=== PATIENT | male | born 1960 | race Caucasian/White ===

== ENCOUNTER → 2017-10-19 | Outpatient (CLI) | payer MEDICARE, BC ==
[~2017-10-19] MED LIST: DULO1CAP PO; FENT1PAT; FENT50T T-DERMAL; GLUC500T4 PO; LYRI150C PO; MELA5 PO; OXYC1TAB36 PO; PREN29TA PO; TEST1INJ3 IM; TIZA4TAB PO; VITA250T3 PO
[2017-10-19 08:46] LABS: AUTOMATED NEUTROPHIL # 5.1 TH/MM3 (1.8-7.7); BASOPHIL % 0.6 % (0.0-2.0); EOSINOPHIL # 0.2 TH/MM3 (0-0.4); EOSINOPHIL % 3.4 % (0.0-4.0); HEMATOCRIT 42.6 % (39.0-51.0); HEMOGLOBIN 14.4 GM/DL (13.0-17.0); LYMPH % 15.1 % (9.0-44.0); LYMPHOCYTE # 1.1 TH/MM3 (1.0-4.8); MEAN CELL VOLUME 88.1 FL (80.0-100.0); MEAN CORPUSCULAR HEMOGLOBIN 29.7 PG (27.0-34.0); MEAN CORPUSCULAR HGB CONC 33.7 % (32.0-36.0); MEAN PLATELET VOLUME 7.1 FL (7.0-11.0); MONO % 7.7 % (0.0-8.0); MONOCYTE # 0.5 TH/MM3 (0-0.9); NEUT % 73.2 % (16.0-70.0); PLATELET COUNT 258 TH/MM3 (150-450); RED BLOOD COUNT 4.84 MIL/MM3 (4.50-5.90); RED CELL DISTRIBUTION WIDTH 14.5 % (11.6-17.2)
[2017-10-19 09:07] LABS: BICARBONATE 29.7 MEQ/L (21.0-32.0); CALCIUM 9.1 MG/DL (8.5-10.1); CREATININE 0.6 MG/DL (0.60-1.30)
[2017-10-19 10:04] LABS: BILIRUBIN, URINE NEG (NEG); BLOOD, URINE NEG (NEG); GLUCOSE,URINE NEG (NEG); KETONE, URINE NEG (NEG); NITRITE,URINE NEG (NEG); SQUAMOUS EPITHELIAL CELL URINE <1 /hpf (0-5); URINE COLOR YELLOW (YELLW/STRAW); URINE LEUKOCYTE ESTERASE NEG (NEG)
== END ==
LOC: CPRE 08:00
PROVIDERS: ATTEND Orthopaedic Surgery Orthopaedic Surgery of the Spine
DX: Z01.812 Encounter for preprocedural laboratory examination (principal); M16.11 Unilateral primary osteoarthritis, right hip
CPT/HCPCS: 36415; 80048; 81001; 85025

== ENCOUNTER 2017-11-05 10:24 | Inpatient (IN) | payer MEDICARE, BC ==
[~2017-11-05] VITALS: Ht 177.8 cm; Wt 93.4 kg
[~2017-11-05 10:24] MED LIST changes: -FENT1PAT
[2017-11-05] MEDS ORDERED: SODIUM CHLORID 0.9% 500 ML IV PRN (11:15)
[2017-11-05] MEDS ORDERED: LACTATED RINGER'S 1000 ML IV PRN (11:15)
[2017-11-05] MEDS ORDERED: CHLORHEXIDINE GLUCONATE 2 % 1 PACK (2 CLOTHS) TOPICAL PRN (11:15)
[2017-11-05] MEDS ORDERED: INSULIN HUMAN REGULAR 1,000 UNITS/10 ML VIAL SQ PRN (11:15)
[2017-11-05] MEDS ORDERED: METOPROLOL TARTRATE 25 MG TAB PO PRN (11:15)
[2017-11-05] MEDS ORDERED: POVIDONE IODINE 5% (ANTISEPSIS KIT) 4 APPLICATIONS EACH NARE PRN (11:15)
[2017-11-05] MEDS ORDERED: ceFAZolin 2 GM PREMIX 50 ML IV SCH (11:45)
[2017-11-05] MEDS ORDERED: CHLORHEXIDINE GLUCONATE 4% SOLN 120 ML BTL TOPICAL SCH (11:45)
[2017-11-05] MEDS ORDERED: VANCOMYCIN 1000 MG/NS 250 ML (for <70 kg) IV SCH ×2 (11:45)
[2017-11-05] MEDS ORDERED: ROCURONIUM INJ 50 MG/5 ML SYRINGE IV PUSH ONE (12:00)
[2017-11-05] MEDS ORDERED: LACTATED RINGER'S 1000 ML INJ 1,000 ML IV ONE (12:00)
[2017-11-05] MEDS ORDERED: PROPOFOL 200 MG/20 ML AMP IV ONE (12:00)
[2017-11-05] MEDS ORDERED: GLYCOPYRROLATE 1 MG/5 ML SYRINGE IV PUSH ONE (12:00)
[2017-11-05] MEDS ORDERED: LIDOCAINE HCL 1% PF 5 ML SYRINGE OTHER ONE (12:00)
[2017-11-05] MEDS ORDERED: ONDANSETRON HCL 4 MG/2 ML VIAL IV ONE (12:00)
[2017-11-05] MEDS ORDERED: DEXAMETHASONE SOD PHOS 4 MG/ML VIAL IV ONE (12:00)
[2017-11-05] MEDS ORDERED: NEOSTIGMINE 5 MG/5 ML SYRINGE IV PUSH ONE (12:00)
[2017-11-05] MEDS ORDERED: STERILE WATER FOR INJECTION 20 ML VIAL IV ONE (12:00)
[2017-11-05] MEDS ORDERED: GENTAMICIN SULFATE 80 MG/2 ML VIAL ONE (12:18)
[2017-11-05] MEDS ORDERED: HYDROmorphone HCL PF 2 MG/ML VIAL ONE (12:50)
[2017-11-05] MEDS ORDERED: ALUMINUM/MAGNESIUM/SIMETH 30 ML CUP PO PRN (15:00)
[2017-11-05] MEDS ORDERED: ONDANSETRON HCL 4 MG/2 ML VIAL IVP PRN (15:00)
[2017-11-05] MEDS ORDERED: oxyCODONE/ACETAMINOPHEN 10 MG/325 MG TAB PO PRN (15:00)
[2017-11-05] MEDS ORDERED: Post-op Orders (for Pharmacy) XX ONE (15:00)
[2017-11-05] MEDS ORDERED: DO NOT ADM ANY ANTICOAGULANT DRUGS PRN (15:05)
[2017-11-05] MEDS ORDERED: *MEPERIDINE 25 MG INJ VIAL PERIprocedural Use ONLY ONE (15:08)
--- NOTE | 2017-11-05 15:09 | HHI.FF ---
Face to Face Verification Diagnosis: (1) Osteoarthritis of right hip Physical Therapy Gait training, Transfer training, bed to chair Hip: Total hip, Protocol: Right, Posterior hip precautions Right LE Weight Bearing: WB as tolerated Left LE Weight Bearing: WB as tolerated Nursing RN Days per Week: 3 x Week(s): 4 Nursing: Dressing changes (clean incision with alcohol and apply dry sterile dressing ) Additional Instructions Pt/INR q Sunday and , call/text results to Tara [phone] Goal INR 1.5-1.8 I have seen patient Juarez Babin on 11/05/17. My clinical findings support the need for the requested home health care services because: Deconditioned w/ increased weakness I certify that my clinical findings support that this patient is homebound because: Post-op weakness Hossein Alejandra MD Nov 05, 2017 15:09
[2017-11-05] MEDS ORDERED: BEDSIDE COMMODE1 MI1 (15:10)
[2017-11-05] MEDS ORDERED: MIDAZOLAM HCL 2 MG/2 ML VIAL ONE (15:11)
[2017-11-05] MEDS ORDERED: WALKER WHEELS/F1 MIS (15:13)
--- NOTE | 2017-11-05 15:15 | HHI.PR ---
Immediate Post Op Note Procedure Date: Nov 05, 2017 Pre Op Diagnosis: R Hip Severe OA,Acetabular Dysplasia; Hip stiffness Post Op Diagnosis: Same Surgeon: Hossein Alejandra MD Production Lapping Machine Operator(s): Tara Rodriguez PA-C Procedure: R THR Complications: None Specimen(s) removed: None Estimated blood loss: 300 cc Anesthesia: General Drains: Hemovac Patient to: PACU Patient Condition: Good Implant/Devices: SEE IMPLANT LOG (if applicable) Date/Time of Procedure: SEE SURGICAL CARE RECORD Hossein Alejandra MD Nov 05, 2017 15:15
[2017-11-05] MEDS ORDERED: *morphine SULFATE 10 MG/ML PERIprocedure ONLY ONE ×2 (15:16→15:26)
--- NOTE | 2017-11-05 15:57 | MP ---
cc: Hossein Alejandra MD DATE OF OPERATION: 11/05/2017 PREOPERATIVE DIAGNOSIS: 1. Right hip severe osteoarthritis, acetabular dysplasia, severe arthrogryposis (hip joint stiffness). 2. History of myelodysplastic syndrome, status post bone marrow transplantation in 2004. POSTOPERATIVE DIAGNOSIS: 1. Right hip severe osteoarthritis, acetabular dysplasia, severe arthrogryposis (hip joint stiffness). 2. History of myelodysplastic syndrome, status post bone marrow transplantation in 2004. PROCEDURE: Right total hip arthroplasty. SURGEON: Hossein Alejandra MD DIRECTOR OF PUBLIC WORKS: GLORIA Cordero ANESTHESIA: General COMPLICATIONS: None ESTIMATED BLOOD LOSS: 300 mL SPECIMEN: None PROCEDURE: My underwriting assistant GLORIA Cordero was present for the entire surgical case. She was medically necessary for the entire case because of the complexity of the case and to facilitate the performance of the procedure. The FLOOR TILING PROFESSIONAL was at the back table and was not of skill-set for this case to manipulate the instruments, e.g., the multiple different types of soft tissue retractors, trial implants, permanent implants. The patient was brought into the operating room and had satisfactory general anesthesia by the Department of Anesthesia. The patient was placed in lateral decubitus position. The patient was found to have severe stiffness involving both of his hips, more on the right side than the left side. Because of the patient's body habitus and his medical condition and the extreme stiffness involving his joints, great care was made to protect all pressure points. The right hip and lower extremity was prepped and draped in the usual sterile manner. Posterolateral exposure of the hip was made. Dissection was carried through considerable amount of adipose tissue down to the underlying fascia. All bleeders were individually coagulated. The fascia pa and gluteus amanda was incised inline with the skin incision. Charnley retractor was placed in the wound in order to allow better exposure. Great care was made to identify and protect the sciatic nerve throughout the entire operative procedure. The patient was found again to have severe stiffness of the hip with little to no internal rotation. The short external rotators were removed as a group. The hip abductors were preserved. Capsulotomy was performed and with gentle flexion and internal rotation the hip was carefully dislocated posteriorly. The ligamentous attachments were sharply removed. Osteotomy was made on the femoral neck at the appropriate level. Exposure of the acetabulum was made. The acetabulum labrum capsule was surgically excised as were the soft tissue capsular attachments. This was to provide increased motion involving the hip postoperatively. Using hemispherical reamers the hip was initially deepened and then widened using hemispherical reamers. A 56 mm Bicentric cup in Press-Fit type manner was found to be stable and satisfactory. Attention was now brought to the proximal femur. Using the Biomet taper lock system it was sequentially broached to a #14 broach standard offset. A +3 neck, 28 mm ball was assembled onto the trunnion. The hip was then reduced. Again, the patient was found to have satisfactory stability, excellent increased range of motion to the hip with satisfactory limb lengths. The hip was dislocated again posteriorly. All trial components were removed and preparation for insertion of components was made. The wound was irrigated with copious amounts of sterile saline antibiotic solution with no active bleeding. Using taper lock Biomet stem 14 mm standard offset was inserted into the canal with excellent "fit and fill". A +3 neck was assembled onto the trunnion with a 28 mm ball with a ceramic head. The hip was reduced with 56 mm cup, 28 mm liner. The hip again was found to have excellent stability, satisfactory range of motion, satisfactory limb lengths. The wound was irrigated with copious amounts of sterile saline antibiotic solution. It was closed over eighth-inch Hemovac drain. The short external rotators were repaired back to trochanter with #2 Tycron sutures. The fascia pa and gluteus amanda was closed over eight-inch Hemovac drain with #2 Tycron sutures, subcutaneous tissue was closed in multiple layers with 0-Vicryl and 2-0 Vicryl and skin was approximated with running subcuticular 2-0 Nylon. Sterile dressings were applied. The patient tolerated the procedure well and arrived in the recovery room in stable and satisfactory condition. Hossein Alejandra MD AWG/TL/rr , 03:01 PM , 03:36 PM
[2017-11-05] MEDS: LACTATED RINGER'S 1000 ML INJ 1,000 ML IV SCH (16:00)
--- NOTE | 2017-11-05 16:14 | RADRPT ---
EXAM DATE/TIME: 11/05/2017 15:15 [facility] COMPARISON: No previous studies available for comparison. INDICATIONS : Post op right hip. MEDICAL HISTORY : None. SURGICAL HISTORY : Lower back surgery. ENCOUNTER: Initial ACUITY: 1 day PAIN SCORE: Non-responsive. LOCATION: Right hip. FINDINGS: A lateral view of the right hip with AP pelvis was obtained. Right total hip arthroplasty. PARI type dr strickland overlies the right hip. Femoral and acetabular components are appropriately positioned without fr acture or dislocation. Extensive posterior fixation of the lumbosacral junction with posterior screw securing the SI joints. CONCLUSION: 1. Right total hip arthroplasty. No fracture or dislocation. 2. Extensive posterior fixation of the lumbosacral junction with fixation of the SI joints. Willi Morgan MD on November 05, 2017 at 16:12 Board Certified Radiologist. This report was verified electronically.
[2017-11-05] MEDS ORDERED: fentaNYL 50 MCG/HR PATCH T-DERMAL SCH (17:00)
[2017-11-05] MEDS: PREGABALIN 75 MG CAP PO SCH (18:35)
[2017-11-05 18:40] VITALS: BP 96/70; PULSE 93; RESP 17; TEMP 99.1; O2SAT 95
[2017-11-05] MEDS: MORPHINE SULFATE 8 MG/ML INJ IV PUSH PRN (20:43)
[2017-11-05] MEDS ORDERED: MELATONIN 5 MG TAB PO SCH (21:00)
[2017-11-05] MEDS: oxyCODONE/ACETAMINOPHEN 10 MG/325 MG TAB PO PRN (22:28)
[2017-11-05] MEDS: DULoxetine HCl DR 20 MG CAP PO SCH (22:29)
[2017-11-06 01:05] VITALS: BP 96/53; PULSE 84; RESP 17; TEMP 96.8; O2SAT 95
[2017-11-06] MEDS: MORPHINE SULFATE 8 MG/ML INJ IV PUSH PRN (02:57)
[2017-11-06] MEDS: LACTATED RINGER'S 1000 ML INJ 1,000 ML IV SCH ×2 (04:30→16:29)
[2017-11-06 06:52] LABS: HEMATOCRIT 31.4 % (39.0-51.0); HEMOGLOBIN 10.4 GM/DL (13.0-17.0)
[2017-11-06 07:01] LABS: INTERNATIONAL NORMALIZED RATIO 1.1 RATIO; PROTHROMBIN TIME - PATIENT 11.5 SEC (9.8-11.6)
--- NOTE | 2017-11-06 07:02 | PD.ORT.PN ---
Subjective Subjective Remarks Patient comfortable No chest pain;no sob explained operative findings;answered multiple questions Objective Vitals Vital Signs Date Time Temp Pulse Resp B/P (MAP) Pulse Ox O2 Delivery O2 Flow Rate FiO2 11/06/17 03:02 18 11/06/17 01:05 96.8 84 17 96/53 (67) 95 11/05/17 23:58 Room Air 11/05/17 23:07 19 11/05/17 19:41 18 11/05/17 18:40 99.1 93 17 96/70 (79) 95 11/05/17 17:30 80 16 116/70 (85) 96 Room Air 11/05/17 17:00 74 16 131/68 (89) 96 Room Air 11/05/17 16:30 70 16 105/64 (78) 95 Room Air 11/05/17 16:15 70 16 106/62 (77) 96 Room Air 11/05/17 16:00 70 16 115/70 (85) 95 Room Air 11/05/17 15:45 70 16 119/65 (83) 96 Room Air 11/05/17 15:30 70 16 124/63 (83) 96 Room Air 11/05/17 15:15 68 16 134/67 (89) 97 Room Air 11/05/17 15:05 97.8 82 16 129/75 (93) 97 11/05/17 11:11 98.4 76 18 97/64 (75) 98 I/O 11/05/17 11/05/17 11/05/17 11/06/17 11/06/17 11/06/17 07:00 15:00 23:00 07:00 15:00 23:00 Intake Total 1100 ml 100 ml Output Total 300 ml 550 ml 150 ml Balance 800 ml -450 ml -150 ml Intake IV Total 1100 ml 100 ml Output Drainage Total 550 ml 150 ml Estimated Blood Loss 300 ml Objective Remarks N/V intact Dressings dry No LLD Assessment & Plan Assessment and Plan POD#1 R THR Ortho stable Low dose XRT today to help prevent post-op HO Low dose coumadin,TEDS for DVT/PE prophlaxsis D/C home later today C RN/PT Hossein Alejandra MD Nov 06, 2017 07:02
[2017-11-06 07:10] VITALS: BP 98/63; PULSE 86; RESP 16; TEMP 97.8; O2SAT 95
[2017-11-06 08:00] VITALS: BP 107/59; PULSE 88; RESP 17; TEMP 99.8; O2SAT 96
[2017-11-06] MEDS: oxyCODONE/ACETAMINOPHEN 10 MG/325 MG TAB PO PRN ×2 (08:18→14:19)
[2017-11-06] MEDS: PREGABALIN 75 MG CAP PO SCH ×3 (08:18→17:06)
[2017-11-06] MEDS: DULoxetine HCl DR 20 MG CAP PO SCH (09:00)
[2017-11-06 11:49] VITALS: BP 123/72; PULSE 81; RESP 17; TEMP 97.8; O2SAT 97
[2017-11-06 11:54] VITALS: BP 114/56; PULSE 79; RESP 17; TEMP 96.4; O2SAT 97
--- NOTE | 2017-11-06 15:52 | RADONCENDT ---
END OF TREATMENT SUMMARY Date: 11/06/2017 Patient Name: Juarez Babin Date of : 1960 Age: 57 Sex: Male END OF TREATMENT SUMMARY PRIMARY REFERRING PHYSICIAN: Hossein Alejandra CC: Hossein Alejandra DIAGNOSIS: Diagnosis Confirmed: Diagnosis Date: Diagnosis Laterality: Method of Diagnosis: PRESCRIPTION AND TREATMENT: Rt Payton Hip (Plan ID - Rt Hip c1) - Rx Dose 700cGy (Status - Treatment Approved) - He completed his planned treatment. PLAN FRACTIONS AND DATES: TREATED PLANS: TOLERANCE: No known complications. FOLLOW UP PLAN: To be followed by Dr. Dooley. Puneet Klein MD 11/06/2017 3:51:37 PM This report was verified electronicallyThis report was verified electronically
[2017-11-06 16:00] VITALS: BP 97/56; PULSE 106; RESP 17; TEMP 99.5; O2SAT 93
[2017-11-06] MEDS ORDERED: WARFARIN SOD 7.5 MG TAB PO ONE (17:00)
[2017-11-06] MEDS ORDERED: DOCUSATE SODIUM 100 MG CAP PO SCH (21:00)
[2017-11-07] MEDS ORDERED: REMOVE OLD DURAGESIC (FENTANYL) PATCH T-DERMAL SCH (18:00)
[2017-11-07] MEDS ORDERED: fentaNYL 50 MCG/HR PATCH T-DERMAL SCH (18:00)
== END 2017-11-06 18:22 | disposition home health service (06) | DRG 470 ==
LOC: HSDI 10:24 → N06B 18:15
PROVIDERS: ADMIT Orthopaedic Surgery Orthopaedic Surgery of the Spine; ATTEND Orthopaedic Surgery Orthopaedic Surgery of the Spine
PROC: 0SR903A Replacement of Right Hip Joint with Ceramic Synthetic Substitute, Uncemented, Open Approach (ICD-10-PCS; principal; 2017-11-05 12:50)
DX: M16.11 Unilateral primary osteoarthritis, right hip (principal); Z94.81 Bone marrow transplant status; Q68.8 Other specified congenital musculoskeletal deformities; Q65.89 Other specified congenital deformities of hip; G62.9 Polyneuropathy, unspecified; F32.9 Major depressive disorder, single episode, unspecified
CPT/HCPCS: 73501; 77290; 77307; 77334; 77336; 77387; 77412; 77431; 85014; 85018; 85610; 86850; 86900; 86901; 86920; 94150; 99221; C1776; J0690; J1100; J1170; J1580; J2175; J2250; J2270; J2405; J2710; J3010; J3370; J7050; J7120; L1830